=== PATIENT | female | born 1995 | race Caucasian/White ===

== ENCOUNTER 2016-08-08 15:03 | Emergency (ER) | payer SELFPAY ==
[~2016-08-08] VITALS: Ht 167.6 cm; Wt 113.0 kg
[~2016-08-08 15:03] MED LIST: ALLERGY10 M1 PO; AMOXICILLIN500 MG PO; AMOXIL400 MG/5 M OR; AUGMENTIN875TAB PO; AZITHROMYCIN250 MG PO; BACTRIM DS1 TAB PO; BENZONATATE200 MG PO; CLINDAGEL1 % EX; EQ IBUPROFEN200 MG PO; FLEXERIL OR; FLEXERIL PO; FLEXERIL5 M1 PO; FLONASE NASAL50 MCG; GNP OMEPRAZOLE20 MG PO; HAVRIX720 UNI1 IM; KETOROLAC60 MG/2 ML IM; MENACTRA PO; MOTRIN800 MG/TAB PO; MUPIROCIN2 % EX; NAPROSYN500 MG PO; NAPROXEN250 MG PO; NAPROXEN500 MG PO; NO HOME MEDS; OMEPRAZOLE20 MG PO; PERCOCET 5/325M1 TAB OR; PREDNISONE10 MG PO; PREVACID15 M3 PO; PREVACID30 M1 PO; PRILOSEC10 M1; PRILOSEC40 MG PO; PROPRANOLOL HCL60 MG PO; PROPRANOLOL60 MG OR; RANITIDINE150 MG OR; SOLU-MEDROL125 MG IM; TAM75CAP PO; TESSALON PER100 MG PO; TH IBUPROFEN200 M1 OR; TRAMADOL HCL50 MG PO; TYLENOL # 31 TA1 PO; ULTRAM50 M1 PO; ULTRAM50 MG PO; ZITHROMAX250 MG PO; ZITHROMAX500 MG PO; ZOFRAN ODT4 MG PO
[2016-08-08] MEDS ORDERED: TRAMADOL HYDROC50 MG PO (17:31)
[2016-08-08] MEDS ORDERED: FLEXERIL PO (17:31)
[2016-08-08] MEDS ORDERED: MOTRIN800 MG PO (17:31)
[2016-08-08 17:50] VITALS: BP 129/66
== END 2016-08-08 17:50 | disposition home or self-care (01) | DRG 605 ==
LOC: ED 15:03
DX: S30.0XXA Contusion of lower back and pelvis, initial encounter (principal); W01.0XXA Fall on same level from slipping, tripping and stumbling without subsequent striking against object, initial encounter; Y92.000 Kitchen of unspecified non-institutional (private) residence as the place of occurrence of the external cause

== ENCOUNTER 2016-10-18 13:48 | Emergency (ER) | payer SELFPAY ==
[~2016-10-18] VITALS: Ht 167.6 cm; Wt 124.0 kg
[~2016-10-18 13:48] MED LIST changes: +MOTRIN800 MG PO; +TRAMADOL HYDROC50 MG PO
[2016-10-18 14:43] VITALS: BP 111/71
== END 2016-10-18 14:48 | disposition home or self-care (01) | DRG 605 ==
LOC: ED 13:48
DX: S80.01XA Contusion of right knee, initial encounter (principal); W10.9XXA Fall (on) (from) unspecified stairs and steps, initial encounter; Y92.009 Unspecified place in unspecified non-institutional (private) residence as the place of occurrence of the external cause

== ENCOUNTER 2017-01-20 18:24 | Emergency (ER) | payer SELFPAY ==
[~2017-01-20] VITALS: Ht 167.6 cm; Wt 118.0 kg
[2017-01-20 19:05] LABS: HEMATOCRIT 38.3 % (37.0-47.0); IMMATURE GRANULOCYTES 0.3 % (0.0-1.0); MEAN CELL VOLUME 80.3 fL CALC (80.0-100.0); MEAN CORPUSCULAR HGB 25.2 pG CALC (26.0-32.0); MEAN CORPUSCULAR HGB CONC 31.3 g/L CALC (32.0-36.0); NEUT# 7.44 thou/uL (2.00-7.15); RED BLOOD COUNT 4.77 mill/uL (4.20-5.60); RED CELL DISTRI WIDTH 15.6 % (11.5-15.5)
[2017-01-20 19:08] LABS: BARBITURATES NEGATIVE (NEGATIVE); COCAINE NEGATIVE (NEGATIVE); METHADONE NEGATIVE (NEGATIVE); OXCYCODONE NEGATIVE (NEGATIVE); TETRAHYDROCANNABIONOL POSITIVE (NEGATIVE); TRICYLIC ANTIDEPRESSANTS NEGATIVE (NEGATIVE)
[2017-01-20 19:15] LABS: ALBUMIN 4.2 g/dL (3.2-5.0); ALKALINE PHOSPHATASE 69 u/l (38-126); ANION GAP 17 (6-22 (CALC)); BILIRUBIN, TOTAL 0.3 mg/dL (0.0-1.4); BUN 14 mg/dL (7-17); BUN/CREATININE RATIO 20 (12-20 (CALC)); CALCIUM 9.1 mg/dL (8.4-10.2); CARBON DIOXIDE 26 mmol/l (22-30); CHLORIDE 104 mmol/l (95-108); CPK 63 u/l (30-165); CREATININE 0.7 mg/dL (0.5-1.0); GFR > 60 ML/MIN (>=60 (CALC)); GFR FOR AFR.AMER. > 60 ML/MIN (>=60 (CALC)); GLUCOSE 142 mg/dL (65-105); POTASSIUM 3.5 mmol/l (3.5-5.1); SGOT/AST 20 u/l (14-36); SGPT/ALT 35 u/l (9-52); SODIUM 143 mmol/l (137-146); TOTAL PROTEIN 7.4 g/dL (6.3-8.2)
[2017-01-20] MEDS ORDERED: NAPROSYN500 MG PO (20:21)
[2017-01-20 20:30] VITALS: BP 125/58
== END 2017-01-20 20:35 | disposition home or self-care (01) | DRG 556 ==
LOC: ED 18:24
PROVIDERS: Emergency Medicine
DX: M79.622 Pain in left upper arm (principal); R07.9 Chest pain, unspecified

== ENCOUNTER 2017-09-22 15:28 | Emergency (ER) | payer BC ==
[~2017-09-22] VITALS: Ht 167.6 cm; Wt 100.0 kg
[2017-09-22] MEDS ORDERED: MEDDOSEPAK PO (16:25)
[2017-09-22] MEDS ORDERED: BENADRYL 50MG C50 MG PO (16:25)
[2017-09-22] MEDS ORDERED: KEFLEX500 M1 PO (16:25)
[2017-09-22 16:40] VITALS: BP 117/58
== END 2017-09-22 16:40 | disposition home or self-care (01) | DRG 603 ==
LOC: ED 15:28
DX: L08.9 Local infection of the skin and subcutaneous tissue, unspecified (principal); B95.62 Methicillin resistant Staphylococcus aureus infection as the cause of diseases classified elsewhere

== ENCOUNTER 2018-09-09 14:45 | Emergency (ER) | payer BC ==
[~2018-09-09] VITALS: Ht 167.6 cm; Wt 118.2 kg
[~2018-09-09 14:45] MED LIST changes: +BENADRYL 50MG C50 MG PO; +KEFLEX500 M1 PO; +MEDDOSEPAK PO
[2018-09-09 14:48] VITALS: BP 120/70
[2018-09-09] MEDS ORDERED: PROZAC10 MG PO (14:53)
[2018-09-09] MEDS ORDERED: CEPHALEXIN500 M1 PO (15:23)
[2018-09-09] MEDS ORDERED: PREDNISONE50 MG PO (15:23)
== END 2018-09-09 15:58 | disposition home or self-care (01) | DRG 603 ==
LOC: ED 14:45
DX: L03.114 Cellulitis of left upper limb (principal); T65.891A Toxic effect of other specified substances, accidental (unintentional), initial encounter; Y92.009 Unspecified place in unspecified non-institutional (private) residence as the place of occurrence of the external cause

== ENCOUNTER 2018-12-01 16:33 | Emergency (ER) | payer BC ==
[~2018-12-01] VITALS: Ht 167.6 cm; Wt 120.5 kg
[~2018-12-01 16:33] MED LIST changes: +CEPHALEXIN500 M1 PO; +PREDNISONE50 MG PO; +PROZAC10 MG PO
[2018-12-01 18:34] VITALS: BP 120/73
== END 2018-12-01 18:35 | disposition home or self-care (01) | DRG 563 ==
LOC: ED 16:33
PROC: 2W3EX1Z Immobilization of Right Hand using Splint (ICD-10-PCS; principal; 2018-12-01)
DX: S66.811A Strain of other specified muscles, fascia and tendons at wrist and hand level, right hand, initial encounter (principal); M25.541 Pain in joints of right hand; X58.XXXA Exposure to other specified factors, initial encounter; Y92.009 Unspecified place in unspecified non-institutional (private) residence as the place of occurrence of the external cause

== ENCOUNTER 2019-09-02 17:03 | Emergency (ER) | payer OTHER, BC ==
[2019-09-02 17:56] LABS: URINE BILIRUBIN - DIPSTICK NEGATIVE (NEGATIVE); URINE BLOOD DIPSTICK NEGATIVE (NEGATIVE); URINE COLOR YELLOW; URINE GLUCOSE - DIPSTICK NEGATIVE (NEGATIVE); URINE KETONE NEGATIVE (NEGATIVE); URINE LEUK ESTERASE NEGATIVE (NEGATIVE); URINE NITRITE - DIPSTICK NEGATIVE (Negative); URINE PH 5.5 (4.5-8.0); URINE PROTEIN - DIPSTICK NEGATIVE (NEG-TRACE); URINE SPECIFIC GRAVITY >=1.030; URINE UROBILINOGEN - DIPSTICK 0.2 E.U./dL (0.2)
[2019-09-02] MEDS ORDERED: IBUPROFEN600 MG PO ×2 (18:32)
[2019-09-02] MEDS ORDERED: FLEXERIL PO (18:32)
[2019-09-02 18:35] VITALS: BP 144/79
== END 2019-09-02 18:35 | disposition home or self-care (01) | DRG 552 ==
LOC: ED 17:03
DX: S16.1XXA Strain of muscle, fascia and tendon at neck level, initial encounter (principal); S29.012A Strain of muscle and tendon of back wall of thorax, initial encounter; S00.03XA Contusion of scalp, initial encounter; V49.40XA Driver injured in collision with unspecified motor vehicles in traffic accident, initial encounter
CPT/HCPCS: L0120

== ENCOUNTER 2019-10-23 18:15 | Emergency (ER) | payer BC ==
[~2019-10-23] VITALS: Ht 167.6 cm; Wt 113.0 kg
[~2019-10-23 18:15] MED LIST changes: +IBUPROFEN600 MG PO
[2019-10-23] MEDS ORDERED: NAPROXEN500 MG PO (18:51)
[2019-10-23 19:00] VITALS: BP 102/66
== END 2019-10-23 19:00 | disposition home or self-care (01) | DRG 563 ==
LOC: ED 18:15
DX: S93.401A Sprain of unspecified ligament of right ankle, initial encounter (principal); W17.2XXA Fall into hole, initial encounter; Y92.007 Garden or yard of unspecified non-institutional (private) residence as the place of occurrence of the external cause

== ENCOUNTER 2020-02-26 18:09 | Emergency (ER) | payer SELFPAY ==
[~2020-02-26] VITALS: Ht 167.6 cm; Wt 120.0 kg
[2020-02-26 19:03] VITALS: BP 113/68
== END 2020-02-26 19:03 | disposition home or self-care (01) | DRG 951 ==
LOC: ED 18:09
DX: Z20.828 Contact with and (suspected) exposure to other viral communicable diseases (principal)

== ENCOUNTER 2020-03-19 21:53 | Emergency (ER) | payer SELFPAY ==
[~2020-03-19] VITALS: Ht 167.6 cm; Wt 115.9 kg
[2020-03-19] MEDS ORDERED: HYDROCO/APAP1 TA9 PO (22:59)
[2020-03-19] MEDS ORDERED: KEFLEX500 M1 PO (22:59)
[2020-03-19 23:30] VITALS: BP 147/83
== END 2020-03-19 23:30 | disposition home or self-care (01) | DRG 914 ==
LOC: ED 21:53
DX: S67.195A Crushing injury of left ring finger, initial encounter (principal); S60.142A Contusion of left ring finger with damage to nail, initial encounter; S61.315A Laceration without foreign body of left ring finger with damage to nail, initial encounter; W23.0XXA Caught, crushed, jammed, or pinched between moving objects, initial encounter; Y92.71 Barn as the place of occurrence of the external cause

== ENCOUNTER 2020-04-09 17:51 | Emergency (ER) | payer SELFPAY ==
[~2020-04-09] VITALS: Ht 167.6 cm; Wt 115.9 kg
[~2020-04-09 17:51] MED LIST changes: +HYDROCO/APAP1 TA9 PO
[2020-04-09 18:44] LABS: URINE BILIRUBIN - DIPSTICK NEGATIVE (NEGATIVE); URINE BLOOD DIPSTICK NEGATIVE (NEGATIVE); URINE COLOR YELLOW; URINE GLUCOSE - DIPSTICK NEGATIVE (NEGATIVE); URINE KETONE NEGATIVE (NEGATIVE); URINE LEUK ESTERASE TRACE (NEGATIVE); URINE NITRITE - DIPSTICK NEGATIVE (Negative); URINE PH 7.5 (4.5-8.0); URINE PROTEIN - DIPSTICK NEGATIVE (NEG-TRACE); URINE SPECIFIC GRAVITY 1.025; URINE UROBILINOGEN - DIPSTICK 0.2 E.U./dL (0.2)
[2020-04-09 18:50] LABS: URINE AMORPH SEDIMENT MANY hpf (NONE-FEW); URINE RBC 0-2 RBC/hpf (0-5); URINE SQUAMOUS EPITHELIAL CELL FEW EPI/hpf (0-FEW); URINE WBC 0-2 WBC/hpf (0-5)
[2020-04-09 19:39] LABS: HEMATOCRIT 37.9 % (37.0-47.0); HEMOGLOBIN 11.5 g/dl (12.0-16.0); IMMATURE GRANULOCYTES 0.3 % (0.0-5.0); MEAN CORPUSCULAR HGB 25.8 pG CALC (26.0-32.0); MEAN CORPUSCULAR HGB CONC 30.3 g/dL CAL (32.0-36.0); NEUT# 5.45 thou/uL (2.00-7.15); RED BLOOD COUNT 4.46 mill/uL (4.20-5.60); RED CELL DISTRI WIDTH 14.8 % (11.5-15.5)
[2020-04-09 19:57] LABS: ALBUMIN 3.9 g/dL (3.2-5.0); ALKALINE PHOSPHATASE 68 u/l (38-126); ANION GAP 12 (6-22 (CALC)); BILIRUBIN, TOTAL 0.3 mg/dL (0.0-1.4); BUN 16 mg/dL (7-17); BUN/CREATININE RATIO 24 (12-20 (CALC)); CARBON DIOXIDE 27 mmol/l (22-30); CHLORIDE 106 mmol/l (95-108); CREATININE 0.7 mg/dL (0.5-1.0); GFR > 60 ML/MIN (>=60 (CALC)); GFR FOR AFR.AMER. > 60 ML/MIN (>=60 (CALC)); LIPASE 50 u/l (23-300); SGOT/AST 20 u/l (14-36); SODIUM 140 mmol/l (137-146); TOTAL PROTEIN 6.8 g/dL (6.3-8.2)
[2020-04-09 20:02] LABS: POTASSIUM 4.5 mmol/l (3.5-5.1)
[2020-04-09] MEDS ORDERED: VANCOMYCIN HCL125 M1 PO (21:20)
[2020-04-09 21:53] VITALS: BP 128/75
== END 2020-04-09 21:53 | disposition home or self-care (01) | DRG 373 ==
LOC: ED 17:51
DX: A04.72 Enterocolitis due to Clostridium difficile, not specified as recurrent (principal)

== ENCOUNTER 2020-07-12 | Emergency (ER) | payer OTHER, MEDICAID ==
[~2020-07-12] MED LIST changes: +VANCOMYCIN HCL125 M1 PO
[2020-07-12 20:19] LABS: HEMATOCRIT 37.1 % (37.0-47.0); HEMOGLOBIN 11.6 g/dl (12.0-16.0); IMMATURE GRANULOCYTES 0.3 % (0.0-5.0); MEAN CELL VOLUME 84.3 fL CALC (80.0-100.0); MEAN CORPUSCULAR HGB 26.4 pG CALC (26.0-32.0); MEAN CORPUSCULAR HGB CONC 31.3 g/dL CAL (32.0-36.0); NEUT# 7.75 thou/uL (2.00-7.15); RED BLOOD COUNT 4.4 mill/uL (4.20-5.60); RED CELL DISTRI WIDTH 14.5 % (11.5-15.5)
[2020-07-12 20:20] LABS: URINE BILIRUBIN - DIPSTICK NEGATIVE (NEGATIVE); URINE BLOOD DIPSTICK NEGATIVE (NEGATIVE); URINE COLOR YELLOW; URINE GLUCOSE - DIPSTICK NEGATIVE (NEGATIVE); URINE KETONE NEGATIVE (NEGATIVE); URINE LEUK ESTERASE TRACE (NEGATIVE); URINE PROTEIN - DIPSTICK NEGATIVE (NEG-TRACE); URINE SPECIFIC GRAVITY 1.025; URINE UROBILINOGEN - DIPSTICK 0.2 E.U./dL (0.2)
[2020-07-12 20:22] LABS: URINE NITRITE - DIPSTICK NEGATIVE (Negative)
[2020-07-12 20:24] LABS: ALBUMIN 3.9 g/dL (3.2-5.0); ALKALINE PHOSPHATASE 49 u/l (38-126); AMYLASE 48 u/l (30-110); ANION GAP 10 (6-22 (CALC)); BUN 13 mg/dL (7-17); BUN/CREATININE RATIO 22 (12-20 (CALC)); CARBON DIOXIDE 25 mmol/l (22-30); CHLORIDE 104 mmol/l (95-108); CREATININE 0.6 mg/dL (0.5-1.0); GFR > 60 ML/MIN (>=60 (CALC)); GFR FOR AFR.AMER. > 60 ML/MIN (>=60 (CALC)); LIPASE 44 u/l (23-300); POTASSIUM 3.7 mmol/l (3.5-5.1); SODIUM 135 mmol/l (137-146); TOTAL PROTEIN 6.9 g/dL (6.3-8.2)
[2020-07-12 20:25] LABS: BILIRUBIN, TOTAL 0.5 mg/dL (0.0-1.4); SGOT/AST 78 u/l (14-36)
[2020-07-12 21:05] LABS: BETA-HCG, QUANT(RESULT NUMBER) 25883 mIU/mL
[2020-07-12] MEDS ORDERED: PEPCID20 MG PO (22:29)
== END 2020-07-12 22:30 | disposition home or self-care (01) | DRG 833 ==
PROVIDERS: Family Medicine
DX: O99.619 Diseases of the digestive system complicating pregnancy, unspecified trimester (principal); K21.9 Gastro-esophageal reflux disease without esophagitis; Z3A.00 Weeks of gestation of pregnancy not specified
CPT/HCPCS: S0164

== ENCOUNTER 2020-08-15 08:38 | Emergency (ER) | payer MEDICAID ==
[~2020-08-15] VITALS: Ht 167.6 cm; Wt 105.9 kg
[~2020-08-15 08:38] MED LIST changes: +PEPCID20 MG PO
[2020-08-15] MEDS ORDERED: AMOXICILLIN500 MG PO (08:59)
[2020-08-15 09:43] LABS: HEMATOCRIT 37.2 % (37.0-47.0); HEMOGLOBIN 11.9 g/dl (12.0-16.0); IMMATURE GRANULOCYTES 0.4 % (0.0-5.0); MEAN CELL VOLUME 83.4 fL CALC (80.0-100.0); MEAN CORPUSCULAR HGB 26.7 pG CALC (26.0-32.0); NEUT# 5.65 thou/uL (2.00-7.15); RED BLOOD COUNT 4.46 mill/uL (4.20-5.60); RED CELL DISTRI WIDTH 14.4 % (11.5-15.5)
[2020-08-15 09:55] LABS: ALKALINE PHOSPHATASE 59 u/l (38-126); ANION GAP 13 (6-22 (CALC)); BILIRUBIN, TOTAL 0.5 mg/dL (0.0-1.4); BUN 9 mg/dL (7-17); BUN/CREATININE RATIO 17 (12-20 (CALC)); CARBON DIOXIDE 22 mmol/l (22-30); CHLORIDE 103 mmol/l (95-108); CREATININE 0.5 mg/dL (0.5-1.0); GFR > 60 ML/MIN (>=60 (CALC)); GFR FOR AFR.AMER. > 60 ML/MIN (>=60 (CALC)); LIPASE 34 u/l (23-300); SODIUM 134 mmol/l (137-146)
[2020-08-15 10:03] LABS: SGOT/AST 19 u/l (14-36)
[2020-08-15 10:31] LABS: URINE BILIRUBIN - DIPSTICK NEGATIVE (NEGATIVE); URINE BLOOD DIPSTICK NEGATIVE (NEGATIVE); URINE COLOR YELLOW; URINE GLUCOSE - DIPSTICK NEGATIVE (NEGATIVE); URINE KETONE TRACE mg/dL (NEGATIVE); URINE LEUK ESTERASE NEGATIVE (NEGATIVE); URINE NITRITE - DIPSTICK NEGATIVE (Negative); URINE PH 5.5 (4.5-8.0); URINE PROTEIN - DIPSTICK NEGATIVE (NEG-TRACE); URINE SPECIFIC GRAVITY >=1.030; URINE UROBILINOGEN - DIPSTICK 0.2 E.U./dL (0.2)
[2020-08-15 10:36] LABS: BETA-HCG, QUANT(RESULT NUMBER) 101940 mIU/mL
[2020-08-15] MEDS ORDERED: PHENERGAN25 MG/TAB PO (11:03)
[2020-08-15 11:22] VITALS: BP 107/68
== END 2020-08-15 11:22 | disposition home or self-care (01) ==
LOC: ED 08:38
PROVIDERS: Family Medicine
DX: O21.9 Vomiting of pregnancy, unspecified (principal); Z3A.11 11 weeks gestation of pregnancy; Z20.822 Contact with and (suspected) exposure to COVID-19

== ENCOUNTER 2020-09-19 11:21 | Emergency (ER) | payer MEDICAID ==
[~2020-09-19] VITALS: Ht 167.6 cm; Wt 103.6 kg
[~2020-09-19 11:21] MED LIST changes: +PHENERGAN25 MG/TAB PO
[2020-09-19 12:21] LABS: HEMATOCRIT 34.9 % (37.0-47.0); HEMOGLOBIN 11.4 g/dl (12.0-16.0); IMMATURE GRANULOCYTES 0.4 % (0.0-5.0); MEAN CELL VOLUME 83.7 fL CALC (80.0-100.0); MEAN CORPUSCULAR HGB 27.3 pG CALC (26.0-32.0); MEAN CORPUSCULAR HGB CONC 32.7 g/dL CAL (32.0-36.0); NEUT# 8.3 thou/uL (2.00-7.15); RED BLOOD COUNT 4.17 mill/uL (4.20-5.60); RED CELL DISTRI WIDTH 14.2 % (11.5-15.5)
[2020-09-19 12:29] LABS: URINE BILIRUBIN - DIPSTICK NEGATIVE (NEGATIVE); URINE BLOOD DIPSTICK NEGATIVE (NEGATIVE); URINE COLOR YELLOW; URINE GLUCOSE - DIPSTICK NEGATIVE (NEGATIVE); URINE KETONE TRACE mg/dL (NEGATIVE); URINE LEUK ESTERASE NEGATIVE (NEGATIVE); URINE NITRITE - DIPSTICK NEGATIVE (Negative); URINE PROTEIN - DIPSTICK NEGATIVE (NEG-TRACE); URINE SPECIFIC GRAVITY >=1.030; URINE UROBILINOGEN - DIPSTICK 0.2 E.U./dL (0.2)
[2020-09-19 12:42] LABS: ALBUMIN 3.7 g/dL (3.2-5.0); ALKALINE PHOSPHATASE 58 u/l (38-126); ANION GAP 12 (6-22 (CALC)); BILIRUBIN, TOTAL 0.3 mg/dL (0.0-1.4); BUN 9 mg/dL (7-17); BUN/CREATININE RATIO 18 (12-20 (CALC)); CARBON DIOXIDE 25 mmol/l (22-30); CHLORIDE 101 mmol/l (95-108); CREATININE 0.5 mg/dL (0.5-1.0); GFR > 60 ML/MIN (>=60 (CALC)); GFR FOR AFR.AMER. > 60 ML/MIN (>=60 (CALC)); LIPASE 44 u/l (23-300); SGOT/AST 21 u/l (14-36); SODIUM 135 mmol/l (137-146); TOTAL PROTEIN 6.6 g/dL (6.3-8.2)
[2020-09-19] MEDS ORDERED: REGLAN10 MG PO (15:22)
[2020-09-19 15:50] VITALS: BP 96/62
[2020-09-19] MEDS ORDERED: PHENERGAN25 MG RE (16:19)
== END 2020-09-19 15:50 | disposition home or self-care (01) ==
LOC: ED 11:21
PROVIDERS: Family Medicine
DX: O21.9 Vomiting of pregnancy, unspecified (principal); Z3A.16 16 weeks gestation of pregnancy

== ENCOUNTER 2021-03-19 21:17 | Emergency (ER) | payer MEDICAID ==
[~2021-03-19] VITALS: Ht 167.6 cm; Wt 107.0 kg
[~2021-03-19 21:17] MED LIST changes: +PHENERGAN25 MG RE; +REGLAN10 MG PO
[2021-03-19] MEDS ORDERED: PRENATAL1 TA1 PO (22:40)
[2021-03-19 23:28] LABS: HEMATOCRIT 37.3 % (37.0-47.0); HEMOGLOBIN 11.8 g/dl (12.0-16.0); IMMATURE GRANULOCYTES 0.1 % (0.0-5.0); MEAN CORPUSCULAR HGB 27.8 pG CALC (26.0-32.0); MEAN CORPUSCULAR HGB CONC 31.6 g/dL CAL (32.0-36.0); NEUT# 6.27 thou/uL (2.00-7.15); RED BLOOD COUNT 4.24 mill/uL (4.20-5.60); RED CELL DISTRI WIDTH 13.5 % (11.5-15.5)
[2021-03-19 23:42] LABS: ALBUMIN 3.8 g/dL (3.2-5.0); ANION GAP 11 (6-22 (CALC)); BUN 20 mg/dL (7-17); BUN/CREATININE RATIO 24 (12-20 (CALC)); CARBON DIOXIDE 30 mmol/l (22-30); CHLORIDE 103 mmol/l (95-108); CREATININE 0.8 mg/dL (0.5-1.0); GFR > 60 ML/MIN (>=60 (CALC)); GFR FOR AFR.AMER. > 60 ML/MIN (>=60 (CALC)); POTASSIUM 4.3 mmol/l (3.5-5.1); SGOT/AST 22 u/l (14-36); SODIUM 139 mmol/l (137-146)
[2021-03-19 23:47] LABS: ALKALINE PHOSPHATASE 85 u/l (38-126); BILIRUBIN, TOTAL 0.3 mg/dL (0.0-1.4); TOTAL PROTEIN 7.3 g/dL (6.3-8.2)
[2021-03-20 00:55] LABS: URINE BILIRUBIN - DIPSTICK NEGATIVE (NEGATIVE); URINE BLOOD DIPSTICK NEGATIVE (NEGATIVE); URINE COLOR YELLOW; URINE GLUCOSE - DIPSTICK NEGATIVE (NEGATIVE); URINE KETONE NEGATIVE (NEGATIVE); URINE LEUK ESTERASE TRACE (NEGATIVE); URINE PH 6.5 (4.5-8.0); URINE PROTEIN - DIPSTICK NEGATIVE (NEG-TRACE); URINE SPECIFIC GRAVITY 1.015; URINE UROBILINOGEN - DIPSTICK 0.2 E.U./dL (0.2)
[2021-03-20 00:59] LABS: URINE NITRITE - DIPSTICK NEGATIVE (Negative)
[2021-03-20 01:29] VITALS: BP 118/66
== END 2021-03-20 01:29 | disposition home or self-care (01) ==
LOC: ED 21:17
DX: R51.9 Headache, unspecified (principal); R90.89 Other abnormal findings on diagnostic imaging of central nervous system; Z20.822 Contact with and (suspected) exposure to COVID-19

== ENCOUNTER 2021-06-05 11:09 | Emergency (ER) | payer MEDICAID ==
[~2021-06-05] VITALS: Ht 167.6 cm; Wt 112.0 kg
[~2021-06-05 11:09] MED LIST changes: +PRENATAL1 TA1 PO
[2021-06-05 12:00] VITALS: BP 130/98
[2021-06-05] MEDS ORDERED: WELLBUTRIN150 M1 PO (12:08)
[2021-06-05] MEDS ORDERED: ZPAK PO (12:08)
[2021-06-05] MEDS ORDERED: PRILOSEC OTC20 MG PO (12:10)
[2021-06-05 12:29] LABS: HEMATOCRIT 39.6 % (37.0-47.0); HEMOGLOBIN 12.1 g/dl (12.0-16.0); IMMATURE GRANULOCYTES 0.1 % (0.0-5.0); MEAN CELL VOLUME 85.9 fL CALC (80.0-100.0); MEAN CORPUSCULAR HGB 26.2 pG CALC (26.0-32.0); MEAN CORPUSCULAR HGB CONC 30.6 g/dL CAL (32.0-36.0); NEUT# 5.77 thou/uL (2.00-7.15); RED BLOOD COUNT 4.61 mill/uL (4.20-5.60); RED CELL DISTRI WIDTH 14.8 % (11.5-15.5)
[2021-06-05 12:33] LABS: URINE BILIRUBIN - DIPSTICK NEGATIVE (NEGATIVE); URINE BLOOD DIPSTICK NEGATIVE (NEGATIVE); URINE COLOR YELLOW; URINE GLUCOSE - DIPSTICK NEGATIVE (NEGATIVE); URINE KETONE NEGATIVE (NEGATIVE); URINE LEUK ESTERASE NEGATIVE (NEGATIVE); URINE NITRITE - DIPSTICK NEGATIVE (Negative); URINE PH 6.5 (4.5-8.0); URINE PROTEIN - DIPSTICK NEGATIVE (NEG-TRACE); URINE UROBILINOGEN - DIPSTICK 0.2 E.U./dL (0.2)
[2021-06-05 12:45] LABS: ALBUMIN 4.3 g/dL (3.2-5.0); ALKALINE PHOSPHATASE 76 u/l (38-126); ANION GAP 13 (6-22 (CALC)); BILIRUBIN, TOTAL 0.1 mg/dL (0.0-1.4); BUN 16 mg/dL (7-17); BUN/CREATININE RATIO 24 (12-20 (CALC)); CARBON DIOXIDE 29 mmol/l (22-30); CHLORIDE 103 mmol/l (95-108); CREATININE 0.7 mg/dL (0.5-1.0); GFR > 60 ML/MIN (>=60 (CALC)); GFR FOR AFR.AMER. > 60 ML/MIN (>=60 (CALC)); POTASSIUM 4.1 mmol/l (3.5-5.1); SGOT/AST 20 u/l (14-36); SODIUM 140 mmol/l (137-146); TOTAL PROTEIN 7.1 g/dL (6.3-8.2)
[2021-06-05 15:24] VITALS: BP 110/68
[2021-06-05 15:30] VITALS: BP 126/85
[2021-06-05] MEDS ORDERED: IMODIUM A-D2 M3 PO (15:55)
[2021-06-05 17:10] VITALS: BP 126/85
== END 2021-06-05 17:14 | disposition home or self-care (01) ==
LOC: ED 11:09
PROVIDERS: Family Medicine
DX: R19.7 Diarrhea, unspecified (principal)
CPT/HCPCS: Q9967

== ENCOUNTER 2021-08-28 13:36 | Emergency (ER) | payer MEDICAID ==
[~2021-08-28] VITALS: Ht 167.6 cm; Wt 115.0 kg
[~2021-08-28 13:36] MED LIST changes: +IMODIUM A-D2 M3 PO; +PRILOSEC OTC20 MG PO; +WELLBUTRIN150 M1 PO; +ZPAK PO
[2021-08-28] MEDS ORDERED: ZOLOFT25 MG PO (14:09)
[2021-08-28] MEDS ORDERED: XANAX0.25 MG PO (14:09)
[2021-08-28 14:10] VITALS: BP 128/76
== END 2021-08-28 15:55 | disposition home or self-care (01) ==
LOC: ED 13:36
DX: M79.662 Pain in left lower leg (principal); I10 Essential (primary) hypertension

== ENCOUNTER 2021-11-08 07:26 | Emergency (ER) | payer MEDICAID ==
[~2021-11-08] VITALS: Ht 167.6 cm; Wt 109.0 kg
[2021-11-08] VITALS (7 sets, daily range): BP systolic 85–114; BP diastolic 52–73
[~2021-11-08 07:26] MED LIST changes: +XANAX0.25 MG PO; +ZOLOFT25 MG PO
[2021-11-08 07:48] LABS: HEMOGLOBIN 13.7 g/dl (12.0-16.0); IMMATURE GRANULOCYTES 0.1 % (0.0-5.0); MEAN CELL VOLUME 82.1 fL CALC (80.0-100.0); MEAN CORPUSCULAR HGB 26.1 pG CALC (26.0-32.0); MEAN CORPUSCULAR HGB CONC 31.9 g/dL CAL (32.0-36.0); NEUT# 7.49 thou/uL (2.00-7.15); RED BLOOD COUNT 5.24 mill/uL (4.20-5.60); RED CELL DISTRI WIDTH 14.7 % (11.5-15.5)
[2021-11-08 08:21] LABS: ALBUMIN 4.2 g/dL (3.2-5.0); ALKALINE PHOSPHATASE 85 u/l (38-126); ANION GAP 13 (6-22 (CALC)); BUN 18 mg/dL (7-17); BUN/CREATININE RATIO 27 (12-20 (CALC)); CARBON DIOXIDE 26 mmol/l (22-30); CHLORIDE 105 mmol/l (95-108); CREATININE 0.7 mg/dL (0.5-1.0); GFR FOR AFR.AMER. > 60 ML/MIN (>=60 (CALC)); GFR OTHER RACES > 60 ML/MIN (>=60 (CALC)); LIPASE 55 u/l (23-300); POTASSIUM 4.4 mmol/l (3.5-5.1); SGOT/AST 21 u/l (14-36); SODIUM 140 mmol/l (137-146)
[2021-11-08 08:28] LABS: BILIRUBIN, TOTAL 0.4 mg/dL (0.0-1.4)
[2021-11-08] MEDS ORDERED: ZOFRAN4 MG/TAB PO (10:32)
== END 2021-11-08 10:55 | disposition home or self-care (01) ==
LOC: ED 07:26
PROVIDERS: Family Medicine
DX: R19.7 Diarrhea, unspecified (principal); I10 Essential (primary) hypertension; E66.9 Obesity, unspecified; Z86.16 Personal history of COVID-19

== ENCOUNTER 2022-03-29 03:16 | Emergency (ER) | payer BC, MEDICAID ==
[~2022-03-29] VITALS: Ht 167.6 cm; Wt 107.0 kg
[~2022-03-29 03:16] MED LIST changes: +ZOFRAN4 MG/TAB PO
[2022-03-29] MEDS ORDERED: MOUNJARO5 MG (03:42)
[2022-03-29 04:56] LABS: BASO% 0.3 % (0-3); EOS% 2.3 % (0-8); HEMATOCRIT 40.2 % (37.0-47.0); HEMOGLOBIN 13.1 g/dl (12.0-16.0); IMMATURE GRANULOCYTES 0.6 % (0.0-5.0); LYMPH% 31.7 % (15-41); MEAN CELL VOLUME 83.4 fL CALC (80.0-100.0); MEAN CORPUSCULAR HGB 27.2 pG CALC (26.0-32.0); MEAN CORPUSCULAR HGB CONC 32.6 g/dL CAL (32.0-36.0); MONO% 7.1 % (2-13); NEUT# 3.82 thou/uL (2.00-7.15); RED BLOOD COUNT 4.82 mill/uL (4.20-5.60); RED CELL DISTRI WIDTH 13.3 % (11.5-15.5)
[2022-03-29 05:03] LABS: URINE BILIRUBIN - DIPSTICK NEGATIVE (NEGATIVE); URINE BLOOD DIPSTICK NEGATIVE (NEGATIVE); URINE COLOR YELLOW; URINE GLUCOSE - DIPSTICK NEGATIVE (NEGATIVE); URINE KETONE NEGATIVE (NEGATIVE); URINE LEUK ESTERASE NEGATIVE (NEGATIVE); URINE PH 5.5 (4.5-8.0); URINE PROTEIN - DIPSTICK NEGATIVE (NEG-TRACE); URINE SPECIFIC GRAVITY >=1.030; URINE UROBILINOGEN - DIPSTICK 0.2 E.U./dL (0.2)
[2022-03-29 05:06] LABS: URINE NITRITE - DIPSTICK NEGATIVE (Negative)
[2022-03-29 05:08] LABS: ALBUMIN 4.2 g/dL (3.2-5.0); ALKALINE PHOSPHATASE 74 u/l (38-126); ANION GAP 10 (6-22 (CALC)); BILIRUBIN, TOTAL 0.2 mg/dL (0.0-1.4); BUN 22 mg/dL (7-17); BUN/CREATININE RATIO 26 (12-20 (CALC)); CARBON DIOXIDE 30 mmol/l (22-30); CHLORIDE 106 mmol/l (95-108); CREATININE 0.8 mg/dL (0.5-1.0); GFR FOR AFR.AMER. > 60 ML/MIN (>=60 (CALC)); GFR OTHER RACES > 60 ML/MIN (>=60 (CALC)); SGOT/AST 26 u/l (14-36); SODIUM 142 mmol/l (137-146); TOTAL PROTEIN 7.2 g/dL (6.3-8.2)
[2022-03-29] MEDS ORDERED: ONDANSETRON4 MG PO (05:24)
[2022-03-29 05:51] VITALS: BP 111/71
== END 2022-03-29 05:51 | disposition home or self-care (01) | DRG 866 ==
LOC: ED 03:16
PROVIDERS: Emergency Medicine
DX: B34.9 Viral infection, unspecified (principal); R11.2 Nausea with vomiting, unspecified; I10 Essential (primary) hypertension; Z20.822 Contact with and (suspected) exposure to COVID-19

== ENCOUNTER 2022-04-14 20:38 | Emergency (ER) | payer BC, OTHER ==
[~2022-04-14] VITALS: Ht 167.6 cm; Wt 104.5 kg
[~2022-04-14 20:38] MED LIST changes: +MOUNJARO5 MG; +ONDANSETRON4 MG PO
[2022-04-14] MEDS ORDERED: MOUNJARO2.5 MG (21:00)
[2022-04-14 21:38] LABS: BASO% 0.2 % (0-3); EOS% 1.2 % (0-8); HEMATOCRIT 40.6 % (37.0-47.0); HEMOGLOBIN 13.6 g/dl (12.0-16.0); IMMATURE GRANULOCYTES 0.2 % (0.0-5.0); MEAN CORPUSCULAR HGB 27.1 pG CALC (26.0-32.0); MEAN CORPUSCULAR HGB CONC 33.5 g/dL CAL (32.0-36.0); MONO% 9.8 % (2-13); NEUT# 2.79 thou/uL (2.00-7.15); NEUT% 66.6 % (42-76); RED BLOOD COUNT 5.01 mill/uL (4.20-5.60); RED CELL DISTRI WIDTH 13.5 % (11.5-15.5)
[2022-04-14 21:48] LABS: ALBUMIN 4.1 g/dL (3.2-5.0); ALKALINE PHOSPHATASE 64 u/l (38-126); AMYLASE 57 u/l (30-110); ANION GAP 11 (6-22 (CALC)); BUN 15 mg/dL (7-17); BUN/CREATININE RATIO 18 (12-20 (CALC)); CARBON DIOXIDE 27 mmol/l (22-30); CHLORIDE 102 mmol/l (95-108); CREATININE 0.8 mg/dL (0.5-1.0); GFR FOR AFR.AMER. > 60 ML/MIN (>=60 (CALC)); GFR OTHER RACES > 60 ML/MIN (>=60 (CALC)); LIPASE 42 u/l (23-300); POTASSIUM 3.4 mmol/l (3.5-5.1); SGOT/AST 29 u/l (14-36); SODIUM 136 mmol/l (137-146)
[2022-04-14 21:49] LABS: BILIRUBIN, TOTAL 0.4 mg/dL (0.0-1.4)
[2022-04-15] MEDS ORDERED: ONDANSETRON4 MG PO (00:25)
[2022-04-15] MEDS ORDERED: ALINIA500 MG PO (00:25)
[2022-04-15 00:40] VITALS: BP 102/75
== END 2022-04-15 00:40 | disposition home or self-care (01) | DRG 392 ==
LOC: ED 20:38
PROVIDERS: Emergency Medicine
DX: K52.9 Noninfective gastroenteritis and colitis, unspecified (principal)

== ENCOUNTER 2022-05-30 08:07 | Emergency (ER) | payer BC, OTHER ==
[~2022-05-30] VITALS: Ht 167.6 cm; Wt 103.4 kg
[~2022-05-30 08:07] MED LIST changes: +ALINIA500 MG PO; +MOUNJARO2.5 MG
[2022-05-30 08:56] LABS: BASO% 0.3 % (0-3); EOS% 2.2 % (0-8); HEMATOCRIT 39.4 % (37.0-47.0); HEMOGLOBIN 12.3 g/dl (12.0-16.0); IMMATURE GRANULOCYTES 0.2 % (0.0-5.0); LYMPH% 19.1 % (15-41); MEAN CELL VOLUME 83.7 fL CALC (80.0-100.0); MEAN CORPUSCULAR HGB 26.1 pG CALC (26.0-32.0); MEAN CORPUSCULAR HGB CONC 31.2 g/dL CAL (32.0-36.0); MONO% 5.9 % (2-13); NEUT# 7.73 thou/uL (2.00-7.15); NEUT% 72.3 % (42-76); RED BLOOD COUNT 4.71 mill/uL (4.20-5.60)
[2022-05-30 09:14] LABS: ALBUMIN 4.2 g/dL (3.2-5.0); ALKALINE PHOSPHATASE 59 u/l (38-126); ANION GAP 9 (6-22 (CALC)); BILIRUBIN, TOTAL 0.4 mg/dL (0.02-1.3); BUN 16 mg/dL (7-17); BUN/CREATININE RATIO 25 (12-20 (CALC)); CARBON DIOXIDE 24 mmol/l (22-30); CHLORIDE 107 mmol/l (95-108); CREATININE 0.6 mg/dL (0.5-1.0); GFR FOR AFR.AMER. > 60 ML/MIN (>=60 (CALC)); GFR OTHER RACES > 60 ML/MIN (>=60 (CALC)); LIPASE 56 u/l (23-300); SGOT/AST 30 u/l (14-36); SODIUM 136 mmol/l (137-146); TOTAL PROTEIN 7.2 g/dL (6.3-8.2)
[2022-05-30 09:18] LABS: POTASSIUM 4.4 mmol/l (3.5-5.1)
[2022-05-30 09:41] LABS: URINE BILIRUBIN - DIPSTICK NEGATIVE (NEGATIVE); URINE BLOOD DIPSTICK MODERATE (NEGATIVE); URINE COLOR YELLOW; URINE GLUCOSE - DIPSTICK NEGATIVE (NEGATIVE); URINE KETONE NEGATIVE (NEGATIVE); URINE LEUK ESTERASE NEGATIVE (NEGATIVE); URINE PROTEIN - DIPSTICK NEGATIVE (NEG-TRACE); URINE SPECIFIC GRAVITY 1.025; URINE UROBILINOGEN - DIPSTICK 0.2 E.U./dL (0.2)
[2022-05-30 09:50] LABS: URINE NITRITE - DIPSTICK NEGATIVE (Negative)
[2022-05-30 10:55] VITALS: BP 106/75
[2022-05-30 11:00] LABS: C. DIFFICILE TOXIN A&B NEGATIVE (NEGATIVE)
[2022-05-30 11:01] VITALS: BP 102/69
[2022-05-30] MEDS ORDERED: ONDANSETRON4 MG PO (12:12)
[2022-05-30 12:31] VITALS: BP 102/69
== END 2022-05-30 12:35 | disposition home or self-care (01) | DRG 866 ==
LOC: ED 08:07
PROVIDERS: Emergency Medicine
DX: B34.9 Viral infection, unspecified (principal); Z20.822 Contact with and (suspected) exposure to COVID-19; E11.9 Type 2 diabetes mellitus without complications; Z79.84 Long term (current) use of oral hypoglycemic drugs; I10 Essential (primary) hypertension

== ENCOUNTER 2022-06-01 04:49 | Emergency (ER) | payer BC, OTHER ==
[2022-06-01] VITALS (9 sets, daily range): BP systolic 109–141; BP diastolic 70–86
[~2022-06-01] VITALS: Ht 167.6 cm; Wt 103.0 kg
[2022-06-01 06:10] LABS: BASO% 0.2 % (0-3); EOS% 0.9 % (0-8); HEMATOCRIT 39.5 % (37.0-47.0); HEMOGLOBIN 12.4 g/dl (12.0-16.0); IMMATURE GRANULOCYTES 0.2 % (0.0-5.0); MEAN CELL VOLUME 84.4 fL CALC (80.0-100.0); MEAN CORPUSCULAR HGB 26.5 pG CALC (26.0-32.0); MEAN CORPUSCULAR HGB CONC 31.4 g/dL CAL (32.0-36.0); MONO% 12.5 % (2-13); NEUT# 2.79 thou/uL (2.00-7.15); NEUT% 61.2 % (42-76); RED BLOOD COUNT 4.68 mill/uL (4.20-5.60); RED CELL DISTRI WIDTH 14.1 % (11.5-15.5)
[2022-06-01 06:22] LABS: ANION GAP 10 (6-22 (CALC)); BUN 7 mg/dL (7-17); BUN/CREATININE RATIO 10 (12-20 (CALC)); CARBON DIOXIDE 26 mmol/l (22-30); CHLORIDE 105 mmol/l (95-108); CREATININE 0.7 mg/dL (0.5-1.0); GFR FOR AFR.AMER. > 60 ML/MIN (>=60 (CALC)); GFR OTHER RACES > 60 ML/MIN (>=60 (CALC)); SODIUM 137 mmol/l (137-146)
[2022-06-01] MEDS ORDERED: ROBITUSSIN AC10 ML PO (06:41)
== END 2022-06-01 06:48 | disposition home or self-care (01) | DRG 866 ==
LOC: ED 04:49
PROVIDERS: Family Medicine
DX: B34.9 Viral infection, unspecified (principal); I10 Essential (primary) hypertension; E11.9 Type 2 diabetes mellitus without complications; Z20.822 Contact with and (suspected) exposure to COVID-19

== ENCOUNTER 2022-08-03 10:11 | Emergency (ER) | payer BC, OTHER ==
[~2022-08-03] VITALS: Ht 167.6 cm; Wt 80.0 kg
[~2022-08-03 10:11] MED LIST changes: +ROBITUSSIN AC10 ML PO
[2022-08-03 10:24] VITALS: BP 111/71
[2022-08-03 10:31] VITALS: BP 87/61
[2022-08-03 10:45] VITALS: BP 103/66
[2022-08-03 11:00] VITALS: BP 114/69
[2022-08-03 11:26] VITALS: BP 114/69
== END 2022-08-03 11:36 | disposition home or self-care (01) | DRG 153 ==
LOC: ED 10:11
DX: J02.9 Acute pharyngitis, unspecified (principal); I10 Essential (primary) hypertension; E11.9 Type 2 diabetes mellitus without complications; Z20.822 Contact with and (suspected) exposure to COVID-19

== ENCOUNTER 2022-08-15 09:47 | Emergency (ER) | payer BC, OTHER ==
[~2022-08-15] VITALS: Ht 167.6 cm; Wt 101.8 kg
[2022-08-15 10:24] LABS: BASO% 0.5 % (0-3); EOS% 3.1 % (0-8); HEMATOCRIT 39.7 % (37.0-47.0); HEMOGLOBIN 12.3 g/dl (12.0-16.0); IMMATURE GRANULOCYTES 0.1 % (0.0-5.0); LYMPH% 29.9 % (15-41); MEAN CELL VOLUME 84.5 fL CALC (80.0-100.0); MEAN CORPUSCULAR HGB 26.2 pG CALC (26.0-32.0); MONO% 6.5 % (2-13); NEUT# 5.02 thou/uL (2.00-7.15); NEUT% 59.9 % (42-76); RED BLOOD COUNT 4.7 mill/uL (4.20-5.60); RED CELL DISTRI WIDTH 13.9 % (11.5-15.5)
[2022-08-15 10:27] LABS: URINE BILIRUBIN - DIPSTICK NEGATIVE (NEGATIVE); URINE BLOOD DIPSTICK MODERATE (NEGATIVE); URINE COLOR YELLOW; URINE GLUCOSE - DIPSTICK NEGATIVE (NEGATIVE); URINE KETONE NEGATIVE (NEGATIVE); URINE LEUK ESTERASE NEGATIVE (NEGATIVE); URINE NITRITE - DIPSTICK NEGATIVE (Negative); URINE PROTEIN - DIPSTICK NEGATIVE (NEG-TRACE); URINE SPECIFIC GRAVITY >=1.030; URINE UROBILINOGEN - DIPSTICK 0.2 E.U./dL (0.2)
[2022-08-15 10:35] LABS: ALBUMIN 4.1 g/dL (3.2-5.0); ALKALINE PHOSPHATASE 80 u/l (38-126); BILIRUBIN, TOTAL 0.2 mg/dL (0.02-1.3); BUN 17 mg/dL (7-17); BUN/CREATININE RATIO 24 (12-20 (CALC)); CHLORIDE 108 mmol/l (95-108); CREATININE 0.7 mg/dL (0.5-1.0); GFR FOR AFR.AMER. > 60 ML/MIN (>=60 (CALC)); GFR OTHER RACES > 60 ML/MIN (>=60 (CALC)); SGOT/AST 24 u/l (14-36); SODIUM 140 mmol/l (137-146); TOTAL PROTEIN 7.3 g/dL (6.3-8.2)
[2022-08-15 10:43] LABS: URINE RBC 0-2 RBC/hpf (0-5); URINE SQUAMOUS EPITHELIAL CELL FEW EPI/hpf (0-FEW)
[2022-08-15 10:53] LABS: ANION GAP 12 (6-22 (CALC)); CARBON DIOXIDE 24 mmol/l (22-30)
[2022-08-15 11:00] LABS: AMYLASE 57 u/l (30-110); LIPASE 60 u/l (23-300)
[2022-08-15 12:41] VITALS: BP 113/87
== END 2022-08-15 12:47 | disposition home or self-care (01) | DRG 392 ==
LOC: ED 09:47
PROVIDERS: Family Medicine
DX: R10.13 Epigastric pain (principal); R10.9 Unspecified abdominal pain; I10 Essential (primary) hypertension; E11.9 Type 2 diabetes mellitus without complications; Z79.85 Long-term (current) use of injectable non-insulin antidiabetic drugs

== ENCOUNTER 2023-05-14 13:27 | Emergency (ER) | payer OTHER ==
[~2023-05-14 13:27] MED LIST changes: +DIFLUCAN150 MG PO; +KEFLEX500 MG PO; +RITALIN10 MG PO; +TRAMADOL HYDROC50 M1 PO
[2023-05-14] MEDS ORDERED: EZETIMIBE10 MG (18:20)
[2023-05-14] MEDS ORDERED: ACYCLOVIR800 MG PO (18:20)
[2023-05-15] MEDS ORDERED: TAM75CAP PO (00:45)
== END 2023-05-14 13:43 | disposition left against medical advice (07) | DRG 951 ==
LOC: ED 13:27 → LWOBS 13:43 → ED 13:43
DX: Z53.21 Procedure and treatment not carried out due to patient leaving prior to being seen by health care provider (principal)

== ENCOUNTER 2023-05-14 16:54 | Emergency (ER) | payer OTHER ==
[~2023-05-14] VITALS: Ht 167.6 cm; Wt 104.0 kg
[2023-05-14 17:28] VITALS: BP 115/83
[2023-05-14] MEDS ORDERED: KETOROLAC TROMETHAMINE 30 MG/ML SDV IV ONE (17:35)
[2023-05-14] MEDS ORDERED: SODIUM CHLORIDE 0.9% 1,000 ML IV ONE (17:35)
[2023-05-14] MEDS ORDERED: ONDANSETRON HCl 4 MG/2 ML SDV IV ONE (17:35)
[2023-05-14 18:00] VITALS: BP 106/58
[2023-05-14 18:02] LABS: BASO% 0.5 % (0-3); EOS% 0.3 % (0-8); HEMATOCRIT 39.3 % (37.0-47.0); HEMOGLOBIN 12.3 g/dl (12.0-16.0); IMMATURE GRANULOCYTES 0.3 % (0.0-5.0); MEAN CELL VOLUME 86.2 fL CALC (80.0-100.0); MEAN CORPUSCULAR HGB CONC 31.3 g/dL CAL (32.0-36.0); MONO% 14.7 % (2-13); NEUT# 2.84 thou/uL (2.00-7.15); NEUT% 76.2 % (42-76); RED BLOOD COUNT 4.56 mill/uL (4.20-5.60); RED CELL DISTRI WIDTH 13.8 % (11.5-15.5)
[2023-05-14 18:04] LABS: URINE BLOOD DIPSTICK Trace-lysed (NEGATIVE); URINE GLUCOSE - DIPSTICK Negative (NEGATIVE); URINE KETONE >=160 mg/dL (NEGATIVE); URINE LEUK ESTERASE Negative (NEGATIVE); URINE NITRITE - DIPSTICK Negative (Negative); URINE PH 5.5 (4.5-8.0); URINE PROTEIN - DIPSTICK 30 mg/dL (NEG-TRACE); URINE SPECIFIC GRAVITY >=1.030; URINE UROBILINOGEN - DIPSTICK 0.2 E.U./dL (0.2)
[2023-05-14 18:15] LABS: URINE COLOR Yellow
[2023-05-14 18:17] LABS: URINE MUCUS MODERATE hpf (NONE-FEW); URINE RBC 0-2 RBC/hpf (0-5); URINE SQUAMOUS EPITHELIAL CELL FEW EPI/hpf (0-FEW)
[2023-05-14] MEDS ORDERED: ACYCLOVIR800 MG PO (18:20)
[2023-05-14] MEDS ORDERED: EZETIMIBE10 MG (18:20)
[2023-05-14 18:27] LABS: ALBUMIN 4.2 g/dL (3.2-5.0); ALKALINE PHOSPHATASE 64 u/l (38-126); BILIRUBIN, TOTAL 0.4 mg/dL (0.02-1.3); BUN 11 mg/dL (7-17); BUN/CREATININE RATIO 16 (12-20 (CALC)); CHLORIDE 106 mmol/l (95-108); CREATININE 0.7 mg/dL (0.5-1.0); GFR FOR AFR.AMER. > 60 ML/MIN (>=60 (CALC)); GFR OTHER RACES > 60 ML/MIN (>=60 (CALC)); LIPASE 154 u/l (23-300); SGOT/AST 23 u/l (14-36); SODIUM 138 mmol/l (137-146); TOTAL PROTEIN 6.7 g/dL (6.3-8.2)
[2023-05-14 18:30] VITALS: BP 101/61
[2023-05-14 18:32] LABS: ANION GAP 14 (6-22 (CALC)); CARBON DIOXIDE 22 mmol/l (22-30); POTASSIUM 3.9 mmol/l (3.5-5.1)
[2023-05-14 19:01] VITALS: BP 93/47
[2023-05-15] MEDS ORDERED: OSELTAMIVIR PHOSPHATE 75 MG/TAB CAP PO ONE (00:35)
[2023-05-15] MEDS ORDERED: TAM75CAP PO (00:45)
[2023-05-15 01:56] VITALS: BP 108/64
== END 2023-05-15 01:57 | disposition home or self-care (01) ==
LOC: ED 16:54
PROVIDERS: Family Medicine
DX: J11.1 Influenza due to unidentified influenza virus with other respiratory manifestations (principal); I10 Essential (primary) hypertension; E11.9 Type 2 diabetes mellitus without complications; Z20.822 Contact with and (suspected) exposure to COVID-19
CPT/HCPCS: Q9967

== ENCOUNTER 2024-05-18 22:32 | Emergency (ER) | payer SELFPAY ==
[~2024-05-18] VITALS: Ht 167.6 cm; Wt 85.0 kg
[~2024-05-18 22:32] MED LIST changes: +ACYCLOVIR800 MG PO; +EZETIMIBE10 MG
[2024-05-18] MEDS ORDERED: BUTALBITAL-APAP-CAFFEINE 50-325-40 TAB PO ONE (23:20)
[2024-05-18] MEDS ORDERED: FLUCONAZOLE 150 MG/TAB PO ONE (23:20)
[2024-05-18] MEDS ORDERED: SELENIUM SULFI TOP (23:30)
[2024-05-18] MEDS ORDERED: GRISEOFULVIN M500 MG PO (23:30)
[2024-05-18 23:51] VITALS: BP 123/71
== END 2024-05-18 23:51 | disposition home or self-care (01) | DRG 869 ==
LOC: ED 22:32
DX: B49 Unspecified mycosis (principal)